=== PATIENT | male | born 1955 | race African-American/Black ===

== ENCOUNTER 2016-11-18 07:22 | Emergency (ER) | payer MEDICAID ==
[~2016-11-18] VITALS: Ht 190.5 cm; Wt 97.0 kg
[2016-11-18] MEDS ORDERED: SODIUM CHLORIDE 0.9% 1,000 ML IV ONE ×2 (07:42→10:01)
[2016-11-18] MEDS ORDERED: ONDANSETRON HCL 4MG/2ML VIAL IV STA (07:42)
[2016-11-18 08:12] LABS: BASOPHILS % 1.4 % (0.0-2.0); EOSINOPHILS % 2.3 % (0.0-5.0); HEMOGLOBIN. 13.2 g/dL (14.0-18.0); LYMPHOCYTES % 41.4 % (20.0-50.0); MEAN CORPUSCULAR HEMOGLOBIN 30.5 pg (28.0-32.0); MEAN CORPUSCULAR HGB CONC 32.9 g/dL (31.0-37.0); MEAN CORPUSCULAR VOLUME 92.6 fL (80.0-94.0); MEAN PLATELET VOLUME 9.7 fl (7.4-10.4); MONOCYTES % 9.4 % (2.0-8.0); NEUTROPHILS % 45.5 % (40.0-76.0); PLATELET 149 x1000/uL (130-400); RED BLOOD CELL COUNT 4.32 mill/uL (4.7-6.1); RED CELL DISTRIBUTION WIDTH 15.9 % (11.6-14.6); WHITE BLOOD COUNT 3.5 x1000/uL (4.5-11.0)
[2016-11-18 08:21] LABS: INR 1.1; PROTHROMBIN TIME 11.7 sec
[2016-11-18 08:30] LABS: ALANINE AMINOTRANSFERASE 19 IU/L (13-61); ALBUMIN 3.8 g/dL (3.4-5.0); ANION GAP 14; CALCIUM 8.9 mg/dL (8.5-10.1); CARBON DIOXIDE 28 mEq/L (21-32); CHLORIDE 108 mEq/L (98-107); CREATINE KINASE 393 IU/L (39-308); ETHANOL BLOOD < 10 mg/dL; INDEX HEMOLYSI 1 (1-3); INDEX ICTERIC 1 (1-4); INDEX LIPEMIC 1 (1-3); NT PRO B-TYPE NATRIURETIC PEP 41 pg/mL (5-125); TROPONIN I < 0.02 ng/mL (0.00-0.04); UREA NITROGEN BLOOD 19 mg/dL (7-21); eGFR > 60 mL/min (>60)
[2016-11-18 08:35] LABS: ACETAMINOPHEN < 2 ug/mL (10-30)
[2016-11-18 09:08] LABS: CLARITY URINE CLEAR (CLEAR); COLOR URINE YELLOW (YELLOW); GLUCOSE URINE NEGATIVE (NEGATIVE); KETONES URINE 1+ (NEGATIVE); LEUKOCYTE ESTERASE URINE NEGATIVE (NEGATIVE); NITRITE URINE NEGATIVE (NEGATIVE); OCCULT BLOOD URINE 1+ (NEGATIVE); PROTEIN URINE NEGATIVE (NEGATIVE); SPECIFIC GRAVITY URINE 1.028 (1.005-1.030)
[2016-11-18 09:56] LABS: *AMPHETAMINES SCREEN URINE NEGATIVE (NEGATIVE); *BARBITURATES SCREEN URINE NEGATIVE (NEGATIVE); *BENZODIAZEPINES SCREEN URINE NEGATIVE (NEGATIVE); *COCAINE SCREEN URINE NEGATIVE (NEGATIVE); CANNABINOID URINE SCREEN NEGATIVE (NEGATIVE); ECSTASY MDMA SCREEN URINE NEGATIVE (NEGATIVE); METHADONE URINE SCREEN NEGATIVE (NEGATIVE); OPIATES URINE SCREEN NEGATIVE (NEGATIVE); PHENCYCLIDINE URINE SCREEN NEGATIVE (NEGATIVE)
[2016-11-18 09:58] LABS: BACTERIA URINE 1+; SQUAMOUS EPITHELIAL CELL URINE FEW /lpf (RARE/1+); WBC URINE 0-2 /hpf (0-2)
[2016-11-18 16:10] VITALS: BP 135/83
== END 2016-11-18 17:16 | disposition home or self-care (01) ==
LOC: ER 07:37
DX: R53.1 Weakness (principal); E86.0 Dehydration
CPT/HCPCS: 36415; 70450; 71010; 80053; 80302; 80305; 80329; 81001; 82550; 82962; 83880; 84443; 84484; 85025; 85610; 93005; 96360; 96361; 99285; G0482; J7030; Z7610